=== PATIENT | female | born 1955 | race Caucasian/White ===

== ENCOUNTER 2016-09-11 09:51 | Outpatient (CLI) | payer OTHER | END 2016-09-11 19:36 | disposition home or self-care (01) | LOC: SMA 09:51 | PROVIDERS: ATTEND Family Medicine | DX: Z12.31 Encounter for screening mammogram for malignant neoplasm of breast (principal) | CPT/HCPCS: 77067; G0202 ==

== ENCOUNTER 2017-10-25 10:10 | Outpatient (CLI) | payer OTHER | END 2017-10-25 20:01 | disposition home or self-care (01) | LOC: SMA 10:10 | PROVIDERS: ATTEND Family Medicine | DX: Z12.31 Encounter for screening mammogram for malignant neoplasm of breast (principal); N63.10 Unspecified lump in the right breast, unspecified quadrant | CPT/HCPCS: 77067 ==

== ENCOUNTER 2017-10-31 14:40 | Outpatient (CLI) | payer OTHER | END 2017-10-31 18:53 | disposition home or self-care (01) | LOC: SUS 14:40 | PROVIDERS: ATTEND Family Medicine | DX: N63.11 Unspecified lump in the right breast, upper outer quadrant (principal); N60.01 Solitary cyst of right breast | CPT/HCPCS: 76642 ==

== ENCOUNTER 2018-11-10 08:23 | Outpatient (CLI) | payer BC | END 2018-11-10 21:09 | disposition home or self-care (01) | LOC: SMA 08:23 | PROVIDERS: ATTEND Family Medicine | DX: R92.1 Mammographic calcification found on diagnostic imaging of breast (principal) | CPT/HCPCS: 76641; 77066 ==

== ENCOUNTER 2020-01-06 07:50 | Outpatient (CLI) | payer BC | END 2020-01-06 20:18 | disposition home or self-care (01) | LOC: SMA 07:50 | PROVIDERS: ATTEND Family Medicine | DX: N60.11 Diffuse cystic mastopathy of right breast (principal); N64.89 Other specified disorders of breast | CPT/HCPCS: 76641; 77066 ==